=== PATIENT | female | born 1980 | race Caucasian/White ===

== ENCOUNTER 2017-09-17 16:11 | Emergency (ER) | payer OTHER ==
[2017-09-17 16:16] VITALS: BP 164/101; PULSE 89; RESP 18; TEMP 97.7; O2SAT 96
--- NOTE | 2017-09-17 16:32 | EDPHY ---
H & P Time Seen by Provider: 09/17/17 16:22 HPI/ROS: CHIEF COMPLAINT: Right leg pain HISTORY OF PRESENT ILLNESS: This 36-year-old woman does have a history of factor 5 Leiden disorder as well as being 25 weeks . She drove 4.5 hr to [place] on September 13 and that evening started having pain in the foot on the right side. Today she started having pain in her right calf a presented with concern for DVT. Does not have visible leg swelling and no skin changes or fever. No chest pain or shortness of breath. REVIEW OF SYSTEMS: Eye: no change in vision ENT: no sore throat Cardiac: no chest pain or syncope Pulmonary: No shortness of breath or hemoptysis Abdomen: No abdominal pain Musculoskeletal: HPI Skin: no rash Neuro: no headache Constitutional: no fever : No symptoms A comprehensive 10 point review of systems is otherwise negative aside from elements mentioned in the history of present illness. PAST MEDICAL HISTORY: 25 weeks , bipolar, left ACL repair. Family history: Mother had DVT and factor 5 Leiden Social history: Primary care is Dr. Salazar at [facility] General Appearance: Alert and conversant, cooperative. Eyes: No scleral icterus. ENT, Mouth: Normal mucous membranes. Respiratory: Normal respiratory effort, breath sounds equal, lungs are clear to auscultation. Cardiovascular: Regular rate and rhythm. Gastrointestinal: Abdomen is gravid, bowel sounds present. Neurological: Alert, normal motor sensory in right leg. Skin: Warm and dry, no rashes. No right calf redness or zoster or warmth. Musculoskeletal: No right leg calf tenderness. Compartments are soft. Normal motor and sensory in the right foot. Psychiatric: Not agitated. Emergency Department course/MDM: Plan for ultrasound of the right leg with factor 5 Leiden and and recent travel. 1706: Normal right leg ultrasound per Dr. Orellana. Warned needs repeat ultrasound if still symptomatic in a week. Smoking Status: Former smoker Constitutional: Initial Vital Signs Temperature (C) 36.5 C 09/17/17 16:11 Heart Rate 89 09/17/17 16:11 Respiratory Rate 18 09/17/17 16:11 Blood Pressure 164/101 H 09/17/17 16:11 O2 Sat (%) 96 09/17/17 16:11 O2 Delivery Mode Room Air Allergies/Adverse Reactions: No Known Allergies Allergy (Unverified 09/05/15 04:38) Home Medications: Medication Instructions Recorded [place] Carbonate ER [Eskalith Cr 1,200 mg PO HS 14 Days tab 04/23/14 450 mg (*)] OLANZapine DISINTEGR [ZyPREXA 30 mg PO HS 14 Days tab 04/23/14 ZYDIS (*)] lamoTRIgine [LaMICtal] 50 mg PO DAILY 14 Days tab 04/23/14 lamoTRIgine [LaMICtal] 100 mg PO HS 14 Days tab 04/23/14 Ativan 09/05/15 Medical Decision Making - Diagnostics Imaging Results: Imaging Impressions Extremity Venous Study 09/17/17 16:29 Impression: No evidence of deep vein thrombosis in the right leg. I telephoned results to Dr. Vadim Rudolph at 1700 hours. Differential Diagnosis: Differential considered including but not limited to [place] cyst, DVT, compartment syndrome, cellulitis, muscle strain Departure - Departure Disposition: Home, Routine, Self-Care Clinical Impression: Right leg pain Condition: Good Instructions: Leg Pain (ED) Additional Instructions: Ultrasound negative for DVT. Repeat ultrasound in 1 week if still symptomatic. Referrals: [facility] [Other] - As per Instructions Matthew Salazar MD [Medical Doctor] - As per Instructions
== END 2017-09-17 18:02 | disposition home or self-care (01) ==
DX: O99.89 Other specified diseases and conditions complicating pregnancy, childbirth and the puerperium (principal); M79.604 Pain in right leg; Z3A.25 25 weeks gestation of pregnancy; Z87.891 Personal history of nicotine dependence

== ENCOUNTER 2017-10-25 15:09 | Observation (INO) | payer OTHER ==
[2017-10-25 15:32] VITALS: BP 157/92; PULSE 58; RESP 18; TEMP 97.7; O2SAT 96
[2017-10-25 17:07] LABS: PLATELET COUNT 172 10^3/uL (150-400)
[2017-10-25] MEDS ORDERED: BETAMETHASONE IM SYRINGE IM ONE (19:45)
[2017-10-25] MEDS ORDERED: MAGNESIUM SULF 2 GM/WATER 50 ML IV ONE (20:00)
--- NOTE | 2017-10-25 20:07 | CPEKG ---
Heart Rate: 59 RR Interval: 1017 P-R Interval: 144 QRSD Interval: 84 QT Interval: 416 QTC Interval: 413 P [place]: 45 QRS [place]: -6 T Wave [place]: 7 EKG Severity - BORDERLINE ECG - EKG Impression: SINUS ARRHYTHMIA, RATE 42-69 EKG Impression: BORDERLINE T ABNORMALITIES, ANTERIOR LEADS Electronically Signed By: Jose Alejandro Mata 26-Oct-2017 08:02:29
--- NOTE | 2017-10-25 21:36 | GHP ---
[f rep st] HISTORY AND PHYSICAL DATE OF ADMISSION: 10/25/2017 ADMISSION HISTORY AND PHYSICAL/TRANSFER HISTORY AND PHYSICAL ADMISSION DIAGNOSES: 1. Intrauterine at 30-0/7 weeks' gestation, with severe preeclampsia. 2. [place] toxicity. HISTORY OF PRESENT ILLNESS: The patient is a 37-year-old 1, para 0, at 30-0/7 weeks' gestati on by a sure and regular last menstrual period of 03/29/2017, confirmed by a first-trimester ultrasou nd. She has had care at [facility]. Her course has been complicated by a recent diagnosis of intrauterine growth restriction. She had an ultrasound on Thursday. I do not have the report in my hand, but per her history, she was diagnosed with intrauterine growth restricti on with an estimated weight of the 7th percentile and had elevated Dopplers. She received a co urse of betamethasone on and Thursday, and was scheduled to follow up on Thursday. The patient is also bipolar. She is on lithium and Seroquel. On Thursday, she had a lithium level checked that was 1.4. Today, she is feeling worse and was concerned about lithium toxicity. On presentation, he r lithium level was in the toxic range of 2.18. The patient presented to [facility] today because she was concerned about possible lithium toxicity. She reports headache and visual dis turbances, epigastric pain, and some shortness of breath. She denies contractions, leakage of fluid, or vaginal bleeding. Reports good movement. No right upper quadrant pain. Upon presentation here to Labor and Delivery, she had elevated blood pressures, 140s to 180s over 80s to 92. he art tones were 150s to 160s. She is not having any contractions. Important laboratory evaluation: She had a normal CBC. Platelets of 172. Electrolytes: Sodium 137 , potassium 5.2, chloride 110, carbon dioxide 16, BUN 23, creatinine 0.9. Uric acid 7.2. AST 26, AL T 44. LDH 496. Again, the lithium level was 2.1. On her urinalysis, protein was 2+ on dip. Protei [id number] ratio is pending, as is a TSH. Because of her toxic lithium level as well as her sym ptoms, I am suspicious for severe preeclampsia compromising her renal function, which is causing an i ncreased level of her lithium. I consulted with maternal- medicine at [facility], and we decided that it would be better for her to transfer to [facility] for continuing care to deal with her lithium toxicity, possible dialysis, and her severe preeclampsia. The patient had prev iously received a course of betamethasone. She is being loaded on magnesium sulfate, and arrange for transfer was made. PAST OBSTETRICAL HISTORY: None. This is her first . PAST MEDICAL HISTORY: Significant for bipolar disorder. She has been hospitalized 5 times in the [facility]. She is currently on lithium 1200 mg a day, Seroquel 400 mg a day, and Ativan 0.5 mg daily. She is followed by a psychiatrist at [facility] on the campus. She had a echo scheduled that wa s normal. Advanced maternal age at 37 years old. She had a low-risk cell-free DNA, normal nuchal tr anslucency, and normal anatomy scan. She had an elevated 1-hour GTT, but a 3-hour that was normal. She has an elevated BMI. PAST SURGICAL HISTORY: No past surgical history. ALLERGIES: No known drug allergies. LABORATORY DATA: She is O-positive, antibody negative, varicella immune, rubella immune, RPR nonreac tive, hepatitis negative, HIV negative, gonorrhea and chlamydia normal. One-hour GTT was 154. Three -hour was normal. Cell-free DNA was normal female. FAMILY HISTORY: Diabetes in her mother, paternal grandmother, and maternal grandfather. Stroke in p aternal grandmother. No other significant family history. SOCIAL HISTORY: She is a student at . She is in a monogamous relationship with her boyfriend, and she is here with the father of the baby, as well as her mother. REVIEW OF SYSTEMS: Negative except for pertinent positives as above. PHYSICAL EXAMINATION: VITAL SIGNS: Again, elevated blood pressures, 130s to 160s over 70s to 90s. GENERAL: She is a well-developed, gravid white female in no acute distress. LUNGS: Clear to auscul tation bilaterally. HEART: Regular rate and rhythm. ABDOMEN: Gravid and nontender. No epigastric pain. Negative Hemphill sign. heart tones are 150s to 160s, appropriate for gestational age, a nd she is not rafy. EXTREMITIES: She has no edema. DTRs are 2+/2+, and she has no clonus. PELVIC: Exam was deferred. ASSESSMENT AND PLAN: A 37-year-old 1, para 0, at 30-0/7 weeks' gestation, with lithium toxic ity, and signs and symptoms of severe preeclampsia. The patient has previously received betamethason e. She had a magnesium bolus of 2 g, but not started on maintenance. An ambulance has been arranged for her to transfer to [facility] for further care. /[id number]/MODL
== END 2017-10-25 21:51 | disposition short-term general hospital (02) ==
LOC: FLD 15:52
PROVIDERS: ADMIT Obstetrics & Gynecology; ATTEND Obstetrics & Gynecology
DX: O14.13 Severe pre-eclampsia, third trimester (principal); O9A.213 Injury, poisoning and certain other consequences of external causes complicating pregnancy, third trimester; T56.891A Toxic effect of other metals, accidental (unintentional), initial encounter; O99.343 Other mental disorders complicating pregnancy, third trimester; O36.5930 Maternal care for other known or suspected poor fetal growth, third trimester, not applicable or unspecified; O09.513 Supervision of elderly primigravida, third trimester; F31.9 Bipolar disorder, unspecified; Z87.891 Personal history of nicotine dependence; Z3A.30 30 weeks gestation of pregnancy
CPT/HCPCS: 59025; 93005; G0378; J0702

== ENCOUNTER → 2018-11-09 | Outpatient (CLI) | payer BC | LOC: FIMAGING 11:28 ==